=== PATIENT | male | born 1965 | race Caucasian/White ===

== ENCOUNTER 2018-12-15 10:01 | Emergency (ER) | payer OTHER ==
[2018-12-15 10:06] VITALS: BP 119/67; PULSE 83; TEMP 98.4; BMI 23.0
[2018-12-15] MEDS ORDERED: KETOROLAC TROMETHAMINE 60 MG/2 ML VIAL IM ONE (10:52)
[2018-12-15] MEDS ORDERED: CYCLOBENZAPRINE HCL 10 MG TABLET (FP) PO ONE (10:53)
[2018-12-15] MEDS ORDERED: KETOROLAC TROMETHAMINE 60 MG/2 ML VIAL ONE (10:56)
[2018-12-15] MEDS ORDERED: CYCLOBENZAPRINE HCL 10 MG TABLET (FP) ONE (10:56)
--- NOTE | 2018-12-15 11:16 | PDOC ---
History of Present Illness - General Chief Complaint: Injury Stated Complaint: FALL Time Seen by Provider: 12/15/18 10:44 History Source: Patient Exam Limitations: Clinical Condition - History of Present Illness Initial Comments: 12/15/18 11:10 Patient with history of diabetes and CAD present with complaint of right lower ribs pain status post trip and fall on a chair hit in right side of ribs on armrest with a chair 5 days ago. Patient denies vomiting blood, chest pain, shortness of breath. Patient reportedly has been taking folic acid for pain with no improvement. Denies any other symptoms Timing/Duration: other (5 days) Past History - Past Medical History Allergies/Adverse Reactions: Allergies Allergy/AdvReac Type Severity Reaction Status Date / Time No Known Allergies Allergy Verified 12/15/18 10:06 Home Medications: Ambulatory Orders Aspirin [ASA -] 325 mg PO DAILY 10/07/13 Rosuvastatin [Crestor -] 40 mg PO DAILY 10/07/13 Metformin HCl [Metformin HCl ER] 500 mg PO BID 12/15/18 Methocarbamol [Robaxin -] 500 mg PO BID PRN #14 tablet 12/15/18 Methylprednisolone [Medrol Dose Alonzo] 4 mg PO ASDIR #21 tablet 12/15/18 Cardiac Disorders: Yes ([place]) COPD: No HTN: Yes - Surgical History Cardiac Surgery: Yes ([facility]) - Suicide/Smoking/Psychosocial Hx Smoking Status: No Smoking History: Never smoked Number of Cigarettes Smoked Daily: 0 Hx Alcohol Use: No Substance Use Type: None Review of Systems - Review of Systems Able to Perform ROS?: Yes Is the patient limited Kyrgyz proficient: No Constitutional: No: Malaise, Weakness HEENTM: No: Symptoms Reported, See HPI, Eye Pain, Blurred Vision, Tearing, Recent change in vision, Double Vision, Cataracts, Ear Pain, Ocular Prothesis, Ear Discharge, Nose Pain, Nose Congestion, Tinnitus, Nose Bleeding, Hearing Loss , Throat Pain, Throat Swelling, Mouth Pain, Dental Problems, Difficulty Swallowing, Mouth Swelling, Other Respiratory: No: Symptoms reported, See HPI, Cough, Orthopnea, Shortness of Breath, SOB with Exertion, SOB at Rest, Stridor, Wheezing, Productive cough, Hemoptysis, Other Cardiac (ROS): No: Symptoms Reported, See HPI, Chest Pain, Edema, Irregular Heart Rate, Lightheadedness, Palpitations, Syncope, Chest Tightness, Other ABD/GI: No: Nausea, Vomiting Musculoskeletal: Yes: See HPI, Muscle Pain (right lower ribs) All Other Systems: Reviewed and Negative *Physical Exam - Vital Signs Last Vital Signs Temp Pulse Resp BP Pulse Ox 98.4 F 83 18 119/67 99 12/15/18 10:02 12/15/18 10:02 12/15/18 10:02 12/15/18 10:02 12/15/18 10:02 - Physical Exam Comments: 12/15/18 11:13 GENERAL: Well developed, well nourished. Awake and alert. No acute distress. CARDIOVASCULAR: Regular rate and rhythm. No murmurs, rubs, or gallops. PULMONARY: No evidence of respiratory distress. Lungs clear to auscultation bilaterally. No wheezing, rales or rhonchi. ABDOMINAL: Soft. Non-tender. Non-distended. No rebound or guarding. No organomegaly. Normoactive bowel sounds MUSCULOSKELETAL : Moderate tenderness over lateral aspect of 8 to 10th ribs on the right side. No ecchymosis or bruising over ribs. No bony deformities SKIN: Warm and dry. Normal capillary refill. No ecchymosis or bruising to right ribs or chest wall. NEUROLOGICAL: Alert, awake, appropriate. No motor deficits in the lower extremities. Gait is normal without ataxia. PSYCHIATRIC: Cooperative. Good eye contact. Appropriate mood and affect. Moderate Sedation - Procedure Monitoring Vital Signs: Procedure Monitoring Vital Signs Temperature 98.4 F 12/15/18 10:02 Pulse Rate 83 12/15/18 10:02 Respiratory Rate 18 12/15/18 10:02 Blood Pressure 119/67 12/15/18 10:02 O2 Sat by Pulse Oximetry (%) 99 12/15/18 10:02 ED Treatment Course - RADIOLOGY Radiology Studies Ordered: Category Date Time Status RIBS RIGHT SIDE [RAD] Stat Radiology 12/15/18 10:52 Ordered - Medications Given in the ED: ED Medications Discontinued Medications Generic Name Dose Route Start Last Admin Trade Name Freq PRN Reason Stop Dose Admin Cyclobenzaprine HCl 5 mg 12/15/18 10:53 12/15/18 11:00 Flexeril - PO 12/15/18 10:54 5 mg ONCE ONE Administration Ketorolac Tromethamine 60 mg 12/15/18 10:52 12/15/18 10:59 Toradol Injection - IM 12/15/18 10:53 60 mg ONCE ONE Administration Medical Decision Making - Medical Decision Making 12/15/18 11:16 Patient presented with complaint of five-day history of right lower rib pain status post trip and fall hitting his ribs on the edge of a chair. Exam significant for moderate tenderness over right lower ribs with no ecchymosis or bruising to skin. Toradol 60 mg IM given for pain and cyclobenzaprine 5 mg by mouth given. X-ray of right rib series ordered to rule out for fracture. Treat based on imaging results 12/15/18 11:46 Ribs x-ray shows no fracture or pleural effusion. Patient stable for discharge with advised to do warm compresses and medrol-alonzo as needed for pain given h/o CAD *DC/Admit/Observation/Transfer Diagnosis at time of Disposition: Contusion of rib on right side Qualifiers: Encounter type: initial encounter Qualified Code(s): S20.211A - Contusion of right front wall of thorax, initial encounter - Discharge Dispostion Disposition: HOME Condition at time of disposition: Stable Decision to Admit order: No - Prescriptions Prescriptions: Methocarbamol [Robaxin -] 500 mg PO BID PRN #14 tablet PRN Reason: rib pain Methylprednisolone [Medrol Dose Alonzo] 4 mg PO ASDIR #21 tablet - Referrals - Patient Instructions Printed Discharge Instructions: DI for Rib Contusion Additional Instructions: Your x-ray shows no fracture of the ribs. Take prescribed medication as prescribed for pain. Apply hot compresses to rib area 2-3 times a day for 5-10 minutes as needed for pain. Follow-up with primary care - Post Discharge Activity
== END 2018-12-15 11:54 | disposition home or self-care (01) ==
LOC: JERFT 10:01
PROC: 3E0233Z Introduction of Anti-inflammatory into Muscle, Percutaneous Approach (ICD-10-PCS; principal; 2018-12-15)
DX: S20.211A Contusion of right front wall of thorax, initial encounter (principal); W01.190A Fall on same level from slipping, tripping and stumbling with subsequent striking against furniture, initial encounter; Y93.89 Activity, other specified; Y92.038 Other place in apartment as the place of occurrence of the external cause; Y99.8 Other external cause status; I25.10 Atherosclerotic heart disease of native coronary artery without angina pectoris; I10 Essential (primary) hypertension; Z95.5 Presence of coronary angioplasty implant and graft; I25.2 Old myocardial infarction
CPT/HCPCS: 71101-TC-RT-FY; 96372; 99281-25